=== PATIENT | female | born 1995 | race Hispanic/Latino ===

== ENCOUNTER 2017-10-29 15:08 | Emergency (ER) | payer OTHER ==
--- NOTE | 2017-10-29 16:03 | ER ---
Nurse's Notes [facility] Name: Tiara Elizabeth Age: 22 yrs Sex: Female : 1995 Arrival Date: 10/29/2017 Time: 15:11 Bed 11 Private MD: None, None Diagnosis: Acute pharyngitis Presentation: 10/29 15:27 Presenting complaint: Patient states: "Last year I had this problem pus pockets in the aj1 back of my throat and now it back" Reports sore throat, fever. Transition of care: patient was not received from another setting of care. Onset of symptoms was October 26, 2017. Risk Assessment: Do you want to hurt yourself or someone else? Patient reports no desire to harm self or others. Initial Sepsis Screen: Does the patient meet any 2 criteria? No. Patient's initial sepsis screen is negative. Does the patient have a suspected source of infection? No. Patient's initial sepsis screen is negative. Care prior to arrival: None. 15:27 Method Of Arrival: Ambulatory aj 15:27 Acuity: ALFREDO 4 aj1 Triage Assessment: 15:30 General: Appears in no apparent distress. uncomfortable, Behavior is calm, cooperative, aj1 appropriate for age. Pain: Complains of pain in left aspect of posterior pharynx and right aspect of posterior pharynx. EENT: Throat has patchy exudate has enlarged tonsils bilaterally. Neuro: Level of Consciousness is awake, alert, obeys commands. Cardiovascular: Patient's skin is warm and dry. Respiratory: Airway is patent Respiratory effort is even, unlabored, Respiratory pattern is regular, symmetrical. 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 - Social history:: Smoking status: Patient/guardian denies using tobacco. - Ebola Screening: : Patient denies travel to an Ebola-affected area in the 21 days before illness onset. Screenin:58 Abuse screen: Denies threats or abuse. Denies injuries from another. Nutritional iw screening: No deficits noted. Tuberculosis screening: No symptoms or risk factors identified. Fall Risk None identified. Assessment: 15:58 General: Appears in no apparent distress. Behavior is calm, cooperative. Pain: iw Complains of pain in throat. Neuro: Level of Consciousness is awake, alert, obeys commands, Moves all extremities. Full function. Cardiovascular: Patient's skin is warm and dry. Respiratory: Airway is patent Respiratory effort is even, unlabored, Breath sounds are clear bilaterally. Derm: Skin is pink, warm \\T\\ dry. normal. Musculoskeletal: Range of motion: intact in all extremities. Vital Signs: 15:30 BP 105 / 64; Pulse 87; Resp 18; Temp 97.4(TE); Pulse Ox 99% on R/A; Weight 68.04 kg aj1 (R); Height 5 ft. 3 in. (160.02 cm) (R); Pain 3/10; 15:30 Body Mass Index 26.57 (68.04 kg, 160.02 cm) aj1 ED Course: 15:11 Patient arrived in ED. mr 15:11 None, None is Private Physician. mr 15:29 Triage completed. aj1 15:30 Arm band placed on Patient placed in an exam room. aj1 15:36 Alicia Fair FNP-C [facility]. snw 15:36 Gennaro Mark MD is Attending Physician. snw 15:58 Isabel Quigley, MONSERRAT is Primary Nurse. iw 15:59 No provider procedures requiring assistance completed. Patient did not have IV access iw during this emergency room visit. 16:00 Patient has correct armband on for positive identification. iw Administered Medications: 16:17 Drug: Zithromax 500 mg Route: PO; iw 16:17 Drug: Rocephin (cefTRIAXone) 1 grams Route: IM; Site: right gluteus; iw 16:17 Drug: Decadron 8 mg Route: PO; iw Outcome: 16:02 Discharge ordered by . snw 16:38 Discharged to home ambulatory, with family. iw 16:38 Condition: good 16:38 Discharge instructions given to patient, Instructed on discharge instructions, follow up and referral plans. medication usage, Demonstrated understanding of instructions, follow-up care, medications, Prescriptions given X 2. 16:40 Patient left the ED. iw Signatures: Bridgette Tian RN RN aj1 Alicia Fair FNP-C ANA-Csnw Dominga Uriostegui mr Dann, Isabel, RN RN iw
--- NOTE | 2017-10-29 16:03 | EDPHYS ---
Physician Documentation [facility] Name: Tiara Elizabeth Age: 22 yrs Sex: Female : 1995 Arrival Date: 10/29/2017 Time: 15:11 Bed 11 Private MD: None, None ED Physician Gennaro Mark HPI: 10/29 19:13 This 22 yrs old Female presents to ER via Ambulatory with complaints of Sore snw Throat. 19:13 The patient presents with sore throat. The patient describes throat pain as raw, snw scratchy. Onset: The symptoms/episode began/occurred suddenly, 3 day(s) ago, and became persistent. Severity of symptoms: At their worst the symptoms were moderate. Associated signs and symptoms: Pertinent positives: fever. The patient has experienced a previous episode, approximately 1 years ago. The patient has not recently seen a physician. 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 - Social history:: Smoking status: Patient/guardian denies using tobacco. - Ebola Screening: : Patient denies travel to an Ebola-affected area in the 21 days before illness onset. ROS: 19:11 Constitutional: Negative for fever, chills, and weight loss, Eyes: Negative for injury, snw pain, redness, and discharge, ENT: Negative for injury and discharge, + sore throat Neck: Negative for injury, pain, and swelling, Cardiovascular: Negative for chest pain, palpitations, and edema, Respiratory: Negative for shortness of breath, cough, wheezing, and pleuritic chest pain, Abdomen/GI: Negative for abdominal pain, nausea, vomiting, diarrhea, and constipation, Back: Negative for injury and pain, : Negative for injury, bleeding, discharge, and swelling, MS/Extremity: Negative for injury and deformity, Skin: Negative for injury, rash, and discoloration, Neuro: Negative for headache, weakness, numbness, tingling, and seizure. Exam: 19:11 Constitutional: This is a well developed, well nourished patient who is awake, alert, snw and in no acute distress. Head/Face: Normocephalic, atraumatic. Eyes: Pupils equal round and reactive to light, extra-ocular motions intact. Lids and lashes normal. Conjunctiva and sclera are non-icteric and not injected. Cornea within normal limits. Periorbital areas with no swelling, redness, or edema. Neck: Trachea midline, no thyromegaly or masses palpated, and no cervical lymphadenopathy. Supple, full range of motion without nuchal rigidity, or vertebral point tenderness. No Meningismus. Chest/axilla: Normal chest wall appearance and motion. Nontender with no deformity. No lesions are appreciated. Cardiovascular: Regular rate and rhythm with a normal S1 and S2. No gallops, murmurs, or rubs. Normal PMI, no JVD. No pulse deficits. Respiratory: Lungs have equal breath sounds bilaterally, clear to auscultation and percussion. No rales, rhonchi or wheezes noted. No increased work of breathing, no retractions or nasal flaring. Abdomen/GI: Soft, non-tender, with normal bowel sounds. No distension or tympany. No guarding or rebound. No evidence of tenderness throughout. Back: No spinal tenderness. No costovertebral tenderness. Full range of motion. Skin: Warm, dry with normal turgor. Normal color with no rashes, no lesions, and no evidence of cellulitis. MS/ Extremity: Pulses equal, no cyanosis. Neurovascular intact. Full, normal range of motion. Neuro: Awake and alert, GCS 15, oriented to person, place, time, and situation. Cranial nerves II-XII grossly intact. Motor strength 5/5 in all extremities. Sensory grossly intact. Cerebellar exam normal. Normal gait. 19:11 ENT: External ear(s): are unremarkable, Ear canal(s): are normal, TM's: are normal, Nose: is normal, Mouth: is normal, Posterior pharynx: exudate, that is moderate, Voice: is normal. Vital Signs: 15:30 BP 105 / 64; Pulse 87; Resp 18; Temp 97.4(TE); Pulse Ox 99% on R/A; Weight 68.04 kg aj1 (R); Height 5 ft. 3 in. (160.02 cm) (R); Pain 3/10; 15:30 Body Mass Index 26.57 (68.04 kg, 160.02 cm) aj1 MDM: 15:36 Patient medically screened. snw 19:12 Data reviewed: vital signs, nurses notes. Data interpreted: Pulse oximetry: on room air snw is 99 %. Interpretation: normal. Counseling: I had a detailed discussion with the patient and/or guardian regarding: the historical points, exam findings, and any diagnostic results supporting the discharge/admit diagnosis, lab results, the need for outpatient follow up, to return to the emergency department if symptoms worsen or persist or if there are any questions or concerns that arise at home. Special discussion: Based on the history and exam findings, there is no indication for further emergent testing or inpatient evaluation. I discussed with the patient/guardian the need to see the primary care provider for further evaluation of the symptoms. 10/29 15:28 Order name: Strep; Complete Time: 16:17 snw 10/29 16:00 Order name: Throat Culture EDMS Administered Medications: 16:17 Drug: Zithromax 500 mg Route: PO; iw 16:17 Drug: Rocephin (cefTRIAXone) 1 grams Route: IM; Site: right gluteus; iw 16:17 Drug: Decadron 8 mg Route: PO; iw Disposition: 10/29/17 16:02 Discharged to Home. Impression: Acute pharyngitis. - Condition is Stable. - Discharge Instructions: Fever, Adult, Infectious Mononucleosis, Pharyngitis, Rehydration, Adult. - Prescriptions for Prednisone 20 mg Oral Tablet - take 1 tablet by ORAL route once daily for 5 days; 5 tablet. Zithromax 500 mg Oral Tablet - take 1 tablet by ORAL route once daily for 5 days; 5 tablet. - Medication Reconciliation Form, Thank You Letter, Antibiotic Education, Prescription Opioid Use form. - Follow up: Private Physician; When: 2 - 3 days; Reason: Recheck today's complaints, Continuance of care, Re-evaluation by your physician. Follow up: Emergency Department; When: As needed; Reason: Worsening of condition. Addendum: 10/31/2017 14:02 Co-signature as Attending Physician, Gennaro Mark MD I agree with the assessment and c harley plan of care. Signatures: Dis[facility] EDBridgette Castellanos RN RN aj1 Gennaro Mark MD MD cha Therrien, Shelly, STRAIGHTENING MACHINE FEEDER-C STRAIGHTENING MACHINE FEEDER-Csnw Isabel Quigley RN RN iw Corrections: (The following items were deleted from the chart) 10/29 16:40 16:02 10/29/2017 16:02 Discharged to Home. Impression: Acute pharyngitis. Condition is iw Stable. Forms are Medication Reconciliation Form, Thank You Letter, Antibiotic Education, Prescription Opioid Use. Follow up: Private Physician; When: 2 - 3 days; Reason: Recheck today's complaints, Continuance of care, Re-evaluation by your physician. Follow up: Emergency Department; When: As needed; Reason: Worsening of condition. snw
[2017-10-29] MEDS ORDERED: CEFTRIAXONE 1000 MG/VIAL ONE (16:08)
[2017-10-29] MEDS ORDERED: AZITHROMYCIN 250 MG TAB ONE (16:08)
[2017-10-29] MEDS ORDERED: LIDOCAINE 1% MPF 5 ML VIAL ONE (16:09)
[2017-10-29] MEDS ORDERED: DEXAMETHASONE 4 MG TAB ONE (16:11)
== END 2017-10-29 16:40 | disposition home or self-care (01) ==
LOC: ER 15:08
DX: J02.9 Acute pharyngitis, unspecified (principal)
CPT/HCPCS: 87070; 87081; 96372; 99283

== ENCOUNTER 2020-10-26 16:30 | Emergency (ER) | payer OTHER | END 2020-10-26 17:02 | disposition left against medical advice (07) | LOC: ER 16:30 | DX: Z02.9 Encounter for administrative examinations, unspecified (principal) ==